=== PATIENT | female | born 1950 | race Caucasian/White ===

== ENCOUNTER 2021-12-29 20:33 | Emergency (ER) | payer OTHER ==
[~2021-12-29] VITALS: Ht 162.6 cm; Wt 84.0 kg
[2021-12-29 20:33] VITALS: BP 134/85
[2021-12-29] MEDS ORDERED: NEOSPORIN OINT 0.9 GM PKT TOP ONE (21:55)
[2021-12-29] MEDS ORDERED: LIDOCAINE 1% MDV 20ML VIAL SC ONE (21:55)
[2021-12-29] MEDS ORDERED: traMADol 50 MG TAB PO ONE (22:55)
[2021-12-29] MEDS ORDERED: NORCO 5/325MG TABLET (HOME DOSE PACK) PO ONE (23:25)
[2021-12-30] MEDS ORDERED: ROSU20TA5 PO (14:58)
[2021-12-30] MEDS ORDERED: IBAN150T6 PO (14:58)
[2021-12-30] MEDS ORDERED: OXYC1TAB23 PO (14:58)
[2021-12-30] MEDS ORDERED: EZET10TA21 PO (14:58)
[2021-12-30] MEDS ORDERED: CEPH500C PO (20:09)
== END 2021-12-30 00:07 | disposition home or self-care (01) ==
LOC: M ED 20:33
DX: S52.502A Unspecified fracture of the lower end of left radius, initial encounter for closed fracture (principal); S52.612A Displaced fracture of left ulna styloid process, initial encounter for closed fracture; S51.012A Laceration without foreign body of left elbow, initial encounter; V18.0XXA Pedal cycle driver injured in noncollision transport accident in nontraffic accident, initial encounter

== ENCOUNTER 2021-12-30 14:39 | Day surgery (SDC) | payer MEDICARE, OTHER ==
[~2021-12-30] VITALS: Ht 162.6 cm; Wt 85.5 kg
[2021-12-30] MEDS ORDERED: ROSU20TA5 PO (14:58)
[2021-12-30] MEDS ORDERED: OXYC1TAB23 PO (14:58)
[2021-12-30] MEDS ORDERED: IBAN150T6 PO (14:58)
[2021-12-30] MEDS ORDERED: EZET10TA21 PO (14:58)
[2021-12-30] MEDS ORDERED: fentaNYL 100 MCG/2 ML INJECTION As Ordered ONE ×2 (18:25→19:16)
[2021-12-30] MEDS ORDERED: ONDANSETRON 4MG 2ML VIAL As Ordered ONE (18:25)
[2021-12-30] MEDS ORDERED: propofoL 200 MG/20 ML VIAL As Ordered ONE (18:25)
[2021-12-30] MEDS ORDERED: LIDOCAINE 2% 100MG/5ML SDV (FOR ANES.) As Ordered ONE (18:25)
[2021-12-30] MEDS ORDERED: dexameTHASONE 4 MG/ML 1ML VIAL (J1100 PER 1MG) As Ordered ONE (18:25)
[2021-12-30] MEDS ORDERED: BUPIVACAINE HCL 0.25% 30ML VIAL As Ordered ONE (18:44)
[2021-12-30] MEDS ORDERED: POLYSPORIN OPHTH OINT 3.5 GM As Ordered ONE (18:44)
[2021-12-30] MEDS ORDERED: ceFAZolin 1GM VIAL (J0690 PER 500MG) As Ordered ONE (18:55)
[2021-12-30] MEDS ORDERED: ACETAMINOPHEN 1000MG 100ML IV BTL (OFIRMEV) (J0131 PER 10MG) As Ordered ONE (19:02)
[2021-12-30] MEDS ORDERED: SEVOFLURANE INHAL SOLN 250 ML BTL As Ordered ONE (19:25)
[2021-12-30] MEDS ORDERED: LIDOCAINE 1% SDV 5ML VIAL PN ONE (19:35)
[2021-12-30] MEDS ORDERED: EPINEPHrine INJ 1 MG/ML 1ML AMP PN ONE (19:35)
[2021-12-30] MEDS ORDERED: fentaNYL 100 MCG/2 ML INJECTION IV PRN ×2 (19:35)
[2021-12-30] MEDS ORDERED: MIDAZOLAM INJ 2MG/2ML VIAL (J2250 PER 1MG) IV PRN (19:35)
[2021-12-30] MEDS ORDERED: ROPIvacaine 0.5% 30ML INJECTION (J2795 PER 1MG) PN ONE (19:35)
[2021-12-30] MEDS ORDERED: oxyCODONE 5MG TAB PO PRN (19:35)
[2021-12-30] MEDS ORDERED: LR 1,000 ML IV SCH (19:35)
[2021-12-30] MEDS ORDERED: ONDANSETRON 4MG 2ML VIAL IV PRN (19:35)
[2021-12-30] MEDS ORDERED: dexameTHASONE 10MG/1ML VIAL PRES.FREE (J1100 PER 1MG) PN ONE (19:35)
[2021-12-30] MEDS ORDERED: CEPH500C PO (20:09)
[2021-12-30 21:30] VITALS: BP 140/65
[2021-12-31] MEDS ORDERED: ceFAZolin SOD 2 GM in IV 1 EA IV ONE (06:00)
== END 2021-12-30 21:47 | disposition home or self-care (01) ==
LOC: M SDC 14:39
PROVIDERS: ATTEND Orthopaedic Surgery Hand Surgery
DX: S52.502A Unspecified fracture of the lower end of left radius, initial encounter for closed fracture (principal); S52.612A Displaced fracture of left ulna styloid process, initial encounter for closed fracture; V18.0XXA Pedal cycle driver injured in noncollision transport accident in nontraffic accident, initial encounter; E78.00 Pure hypercholesterolemia, unspecified; M81.0 Age-related osteoporosis without current pathological fracture; Z79.899 Other long term (current) drug therapy
CPT/HCPCS: 25607; 76000; 87428; C1713; J0131; J0690; J1100; J2405; J3010

== ENCOUNTER → 2022-01-13 | Outpatient (CLI) | payer MEDICARE ==
[~2022-01-13] MED LIST: CEPH500C PO; EZET10TA21 PO; IBAN150T6 PO; OXYC1TAB23 PO; ROSU20TA5 PO
== END ==
LOC: M SOG 08:09
PROVIDERS: ATTEND Orthopaedic Surgery Hand Surgery
DX: S52.502A Unspecified fracture of the lower end of left radius, initial encounter for closed fracture (principal); W18.30XA Fall on same level, unspecified, initial encounter; Y92.009 Unspecified place in unspecified non-institutional (private) residence as the place of occurrence of the external cause

== ENCOUNTER → 2022-02-15 | Outpatient (CLI) | payer MEDICARE | LOC: M SOG 10:10 | PROVIDERS: ATTEND Orthopaedic Surgery Hand Surgery | DX: S52.502A Unspecified fracture of the lower end of left radius, initial encounter for closed fracture (principal); W18.30XA Fall on same level, unspecified, initial encounter; Y92.009 Unspecified place in unspecified non-institutional (private) residence as the place of occurrence of the external cause ==